=== PATIENT | male | born 1990 | race Caucasian/White ===

== ENCOUNTER 2017-10-30 15:12 | Emergency (ER) | payer MEDICAID | END 2017-10-30 15:32 | disposition home or self-care (01) | LOC: E/R 15:32 | DX: Z48.01 Encounter for change or removal of surgical wound dressing (principal) | CPT/HCPCS: 99281; Z7502 ==

== ENCOUNTER 2017-11-12 10:20 | Emergency (ER) | payer MEDICAID | END 2017-11-12 12:48 | disposition home or self-care (01) | LOC: FTE 10:20 | DX: Z48.02 Encounter for removal of sutures (principal) | CPT/HCPCS: 99281; Z7502 ==